=== PATIENT | female | born 1935 | race Caucasian/White ===

== ENCOUNTER 2017-06-26 05:25 | Day surgery (SDC) | payer OTHER ==
[~2017-06-26 05:25] MED LIST: CLONAZEPAM0.5 MG; COZAAR25 MG PO; FELODIPINE ER5 MG PO; LIPOCHOL PLUS0.5 MG; METOPROLOL SUCC25 MG; SIMVASTATIN20 MG PO; [UNRECOGNIZED DRUG - SUPPLY] PO
[2017-06-26] MEDS ORDERED: TRAM1TAB98 PO (08:38)
[2017-06-26] MEDS ORDERED: DUI500 PO (08:38)
== END 2017-06-26 12:25 | disposition home or self-care (01) ==
LOC: CIR.AMB 05:25 → EDBD 07:45 → CIR.AMB 12:25
DX: M23.321 Other meniscus derangements, posterior horn of medial meniscus, right knee (principal); M23.351 Other meniscus derangements, posterior horn of lateral meniscus, right knee; M17.11 Unilateral primary osteoarthritis, right knee